=== PATIENT | male | born 1995 | race Caucasian/White ===

== ENCOUNTER 2022-03-25 19:22 | Observation (INO) | payer OTHER ==
[2022-03-25 20:46] LABS: Basophils % (A) 0 %; Eosinophils % (A) 0 %; HCT 44.8 % (39.0-53.0); HGB 15.1 gm/dL (13.0-17.5); Lymphocytes # (A) 1.4 k/uL (1.0-4.8); Lymphocytes % (A) 11 %; MCH 29.7 pg (25.0-35.0); MCHC 33.7 g/dL (31.0-37.0); MCV 88.3 fL (80.0-100.0); Monocytes # (A) 0.5 k/uL (0-1.0); Monocytes % (A) 4 %; Neutrophils # (A) 10.3 k/uL (1.3-7.7); Neutrophils % (A) 84 %; Platelet Count 287 k/uL (150-450); RBC 5.08 m/uL (4.30-5.90); RDW 12.5 % (11.5-15.5); WBC 12.4 k/uL (3.8-10.6)
[2022-03-25 20:53] LABS: ALT 26 U/L (4-49); AST 28 U/L (17-59); African American GFR (CKD) >90 (>60 ml/min/1.73 sqM); Albumin 4.8 g/dL (3.5-5.0); Alkaline Phosphatase 66 U/L (38-126); Anion Gap 10 mmol/L; Blood Urea Nitrogen 13 mg/dL (9-20); Calcium 9.9 mg/dL (8.4-10.2); Carbon Dioxide 28 mmol/L (22-30); Chloride 102 mmol/L (98-107); Glucose 125 mg/dL (74-99); Non-African American GFR(CKD) >90 (>60 ml/min/1.73 sqM); Potassium 4.3 mmol/L (3.5-5.1); Sodium 140 mmol/L (137-145); Total Bilirubin 0.8 mg/dL (0.2-1.3); Total Protein 8.2 g/dL (6.3-8.2)
--- NOTE | 2022-03-25 21:01 | CT ---
EXAMINATION TYPE: CT abdomen pelvis w con CT DLP: 1389.8 mGycm, Automated exposure control for dose reduction was used. DATE OF EXAM: 03/25/2022 8:42 PM COMPARISON: None. CLINICAL INDICATION:Male, 27 years old with history of abdominal pain; RLQ pain TECHNIQUE: Standard CT of the abdomen and pelvis following the administration of 100 cc of Isovue 3 00 IV contrast material. Coronal and sagittal reformats were performed. FINDINGS: LOWER CHEST: Unremarkable ABDOMEN LIVER: Unremarkable GALLBLADDER AND BILE DUCTS: Unremarkable. PANCREAS: 2 mm hypoattenuating focus within the pancreatic body which is too small to characterize. N o pancreatic ductal dilatation. SPLEEN: Unremarkable. ADRENAL GLANDS: Unremarkable. KIDNEYS AND URETERS: No evidence of hydronephrosis or renal calculus. No concerning lesions. PELVIS BLADDER: Incompletely distended but grossly unremarkable. REPRODUCTIVE: Unremarkable. ABDOMEN & PELVIS STOMACH AND BOWEL: Stomach and duodenum are unremarkable. Dilated appendix with a few appendicoliths identified with largest in the proximal portion measuring up to 0.5 cm. The appendix measures up to 1 .5 cm with surrounding subtle fat stranding. No evidence for perforation at this time. No surrounding abscess. No evidence of bowel obstruction. PERITONEUM: No evidence of pneumoperitoneum or free fluid. VASCULATURE: No evidence of aortic aneurysm. MUSCULOSKELETAL: No acute osseous abnormalities. Fixation hardware involving the right pelvic bones. LYMPH NODES: Several nonenlarged but prominent mesenteric lymph nodes identified, likely reactive. SOFT TISSUE/ABDOMINAL WALL: Patulous bilaterally inguinal rings. IMPRESSION: Uncomplicated acute appendicitis. Findings called to and communicated with Dr. Erasto Warner at 8:57 PM on 03/25/2022.
--- NOTE | 2022-03-25 21:14 | ED ---
General Adult HPI - General Chief complaint: Abdominal Pain Stated complaint: Abd pain,Nausea Time Seen by Provider: 03/25/22 21:04 Source: patient Mode of arrival: ambulatory Limitations: no limitations - History of Present Illness Initial comments: Patient presents to the ED with his whit for evaluation. Patient states that he awoke this morning with periumbilical abdominal pain, which moved to his right lower quadrant abdomen in the afternoon. Patient states that he has also felt nauseated and vomited once today. Patient also states that he has had a decreased appetite today. Patient states that his right lower abdominal pain is worse with ambulation. Patient denies trauma or injury, fever or chills, headache, focal neuro deficit, chest pain or pressure, dyspnea, cough or cold symptoms, upper abdominal pain, back or flank pain, testicular pain, diarrhea or constipation, bloody or melanotic stool, hematemesis, dysuria/hematuria/urinary frequency/urinary symptoms, or any other symptoms or complaints. - Related Data Allergies Allergy/AdvReac Type Severity Reaction Status Date / Time No Known Allergies Allergy Verified 03/25/22 20:03 Review of Systems ROS Statement: Those systems with pertinent positive or pertinent negative responses have been documented in the HPI. ROS Other: All systems not noted in ROS Statement are negative. General Exam Limitations: no limitations General appearance: alert, in no apparent distress Head exam: Present: atraumatic, normocephalic Eye exam: Present: normal appearance, EOMI ENT exam: Present: mucous membranes moist Neck exam: Present: other (Trachea is in midline) Respiratory exam: Present: normal lung sounds bilaterally. Absent: respiratory distress, wheezes, rales, rhonchi, stridor Cardiovascular Exam: Present: regular rate, normal rhythm, normal heart sounds, other (Normal radial pulses bilaterally) GI/Abdominal exam: Present: soft, rebound, normal bowel sounds, other (McBurney's point tenderness; negative Rovsing sign). Absent: distended, guarding Extremities exam: Absent: pedal edema Back exam: Absent: CVA tenderness (R), CVA tenderness (L) Neurological exam: Present: alert, oriented X3. Absent: motor sensory deficit Psychiatric exam: Present: normal affect, normal mood Skin exam: Present: warm, dry, intact, normal color Course Vital Signs 03/25/22 19:58 Temperature 98.5 F Pulse Rate 73 Respiratory 18 Rate Blood Pressure 144/89 O2 Sat by Pulse 97 Oximetry - Reevaluation(s) Reevaluation #1: 03/25/22 21:19 Case, H&P, test results and ED management were discussed with Dr. Beavers (general surgery). He accepts hospital admission. He agrees with IV Zosyn antibiotic treatment. He states that he will see the patient in the morning. He asked to keep the patient NPO. He has no further recommendations at this time. Medical Decision Making - Medical Decision Making Patient's H&P and CT findings are all consistent with acute appendicitis. Patient has been treated with IV fluids, IV pain medications and IV antibiotics in the ED. Dr. Beavers (general surgery) has accepted hospital admission. - Lab Data Result diagrams: 03/25/22 20:10 03/25/22 20:10 Lab Results 03/25/22 03/25/22 Range/Units 20:10 20:10 WBC 12.4 H (3.8-10.6) k/uL RBC 5.08 (4.30-5.90) m/uL Hgb 15.1 (13.0-17.5) gm/dL Hct 44.8 (39.0-53.0) % MCV 88.3 (80.0-100.0) fL MCH 29.7 (25.0-35.0) pg MCHC 33.7 (31.0-37.0) g/dL RDW 12.5 (11.5-15.5) % Plt Count 287 (150-450) k/uL MPV 8.0 Neutrophils % 84 % Lymphocytes % 11 % Monocytes % 4 % Eosinophils % 0 % Basophils % 0 % Neutrophils # 10.3 H (1.3-7.7) k/uL Lymphocytes # 1.4 (1.0-4.8) k/uL Monocytes # 0.5 (0-1.0) k/uL Eosinophils # 0.0 (0-0.7) k/uL Basophils # 0.0 (0-0.2) k/uL Sodium 140 (137-145) mmol/L Potassium 4.3 (3.5-5.1) mmol/L Chloride 102 (98-107) mmol/L Carbon Dioxide 28 (22-30) mmol/L Anion Gap 10 mmol/L BUN 13 (9-20) mg/dL Creatinine 0.98 (0.66-1.25) mg/dL Est GFR (CKD-EPI)AfAm >90 (>60 ml/min/1.73 sqM) Est GFR (CKD-EPI)NonAf >90 (>60 ml/min/1.73 sqM) Glucose 125 H (74-99) mg/dL Calcium 9.9 (8.4-10.2) mg/dL Total Bilirubin 0.8 (0.2-1.3) mg/dL AST 28 (17-59) U/L ALT 26 (4-49) U/L Alkaline Phosphatase 66 (38-126) U/L Total Protein 8.2 (6.3-8.2) g/dL Albumin 4.8 (3.5-5.0) g/dL - Radiology Data CT abdomen/pelvis with IV contrast: Uncomplicated acute appendicitis. Disposition Clinical Impression: Acute appendicitis Disposition: ADMITTED IP TO THIS [facility] Condition: Stable Is patient prescribed a controlled substance at d/c from ED?: No Referrals: Nonstaff,Physician [Primary Care Provider] - 1-2 days Time of Disposition: 21:27
[2022-03-25] MEDS ORDERED: PIPERACILLIN-TAZOBACTAM 3.375 GM in SODIUM CHLORIDE 0.9% 100 ML IVPB STA (21:19)
[2022-03-25] MEDS ORDERED: SODIUM CHLORIDE 0.9% 1,000 ML IV ONE (21:20)
[2022-03-25] MEDS ORDERED: ONDANSETRON 4 MG/2 ML VIAL IVP STA (21:20)
[2022-03-25] MEDS ORDERED: HYDROmorphone 1 MG/ML 1 ML SYRINGE IVP STA (21:20)
[2022-03-25] MEDS ORDERED: NALOXONE 0.4 MG/ML 1 ML VIAL IV PRN (21:27)
[2022-03-25] MEDS ORDERED: ONDANSETRON 4 MG/2 ML VIAL IVP PRN (21:27)
[2022-03-25] MEDS: SODIUM CHLORIDE 0.9% 1,000 ML IV SCH (21:47)
[2022-03-25 23:29] LABS: Appearance,Urine Clear (Clear); Bilirubin,Urine Negative (Negative); Blood,Urine Negative (Negative); Color,Urine Light Yellow; Glucose,Urine (UA) Negative (Negative); Ketones,Urine Negative (Negative); Leukocyte Esterase,Urine Negative (Negative); Nitrite,Urine Negative (Negative); PH, Urine 7.5 (5.0-8.0); Protein,Urine Trace (Negative); Urobilinogen,Urine <2.0 mg/dL (<2.0)
[2022-03-25 23:54] LABS: Specific Gravity,Urine >1.050 (1.001-1.035)
[2022-03-26] MEDS: HYDROmorphone 0.5 MG/0.5 ML SYRINGE IVP PRN ×2 (00:31→15:01)
[2022-03-26] MEDS ORDERED: KETOROLAC 15 MG/ML 1 ML VIAL IVP STA (02:02)
[2022-03-26] MEDS ORDERED: SCOPOLAMINE 1 MG/72 HR PATCH TRANSDERM STA (02:02)
[2022-03-26] MEDS: HYDROmorphone 1 MG/ML 1 ML SYRINGE IVP PRN ×5 (02:09→19:08)
[2022-03-26] MEDS: PIPERACILLIN-TAZOBACTAM 3.375 GM in SODIUM CHLORIDE 0.9% 100 ML IVPB SCH ×3 (05:23→21:01)
[2022-03-26 06:53] LABS: Basophils % (A) 0 %; Eosinophils % (A) 0 %; Lymphocytes # (A) 1.2 k/uL (1.0-4.8); Lymphocytes % (A) 9 %; MCHC 32.5 g/dL (31.0-37.0); MCV 89.2 fL (80.0-100.0); Mean Platelet Volume 7.9; Monocytes # (A) 0.6 k/uL (0-1.0); Monocytes % (A) 4 %; Neutrophils # (A) 11.5 k/uL (1.3-7.7); Neutrophils % (A) 86 %; Platelet Count 276 k/uL (150-450); RBC 4.82 m/uL (4.30-5.90); RDW 12.5 % (11.5-15.5); WBC 13.4 k/uL (3.8-10.6)
[2022-03-26 07:04] LABS: ALT 22 U/L (4-49); AST 23 U/L (17-59); African American GFR (CKD) >90 (>60 ml/min/1.73 sqM); Albumin 4.2 g/dL (3.5-5.0); Alkaline Phosphatase 65 U/L (38-126); Anion Gap 7 mmol/L; Blood Urea Nitrogen 11 mg/dL (9-20); Calcium 8.8 mg/dL (8.4-10.2); Carbon Dioxide 27 mmol/L (22-30); Chloride 104 mmol/L (98-107); Glucose 118 mg/dL (74-99); Non-African American GFR(CKD) >90 (>60 ml/min/1.73 sqM); Potassium 4.6 mmol/L (3.5-5.1); Sodium 138 mmol/L (137-145); Total Bilirubin 0.7 mg/dL (0.2-1.3); Total Protein 7.3 g/dL (6.3-8.2)
--- NOTE | 2022-03-26 10:05 | P.GSHP ---
History of Present Illness H&P Date: 03/26/22 Chief Complaint: Acute abdominal pain Patient is a 27-year-old gentleman who presents to [facility] emergency department the evening of 03/25/2022 with chief complaint of 24 hours of progressive abdominal pain that started more diffusely and came to rest in the right lower quadrant accompanied by progressive nausea and multiple bouts of nonbloody emesis. He had similar symptoms at around age 17, computed tomography scan abdomen and pelvis reportedly showed findings consistent with appendicitis and he was treated with outpatient antibiotics and has done well until now. He has no known personal history of inflammatory bowel disease, is never undergone any manner of endoscopy. No medical problems of significance aside from occasional asthma, is not maintained on any manner of oral anticoagulants. Laboratory studies revealed mild leukocytosis at 12.4, normal platelet count, no evidence of iron deficiency anemia. Metabolic panel was normal and all counts with the exception of a mildly elevated glucose. Similarly normal. Computed tomography scan of urine pelvis was obtained, images and report reviewed revealing findings consistent with uncomplicated acute appendicitis with fecalith. No evidence of rupture or abscess seen. Patient was started on IV Zosyn and admitted to the surgical service for further care. He is remained hemodynamically stable and afebrile overnight with the exception of a mild tachycardia. - Review of Systems All systems: negative - Constitutional Constitutional: Reports as per HPI - EENT Ears, nose, mouth and throat: Reports as per HPI Past Medical History Past Medical History: No Reported History, Asthma History of Any Multi-Drug Resistant Organisms: None Reported Past Surgical History: Orthopedic Surgery Additional Past Surgical History / Comment(s): right hip right hand Smoking Status: Never smoker Medications and Allergies Home Medications Medication Instructions Recorded Confirmed Type Albuterol Sulfate [Albuterol 2 puff INHALATION RT-QID PRN 03/25/22 03/25/22 History Sulfate Hfa] Ipratropium-Albuterol Nebulize 3 ml INHALATION RT-QID PRN 03/25/22 03/25/22 History [Duoneb 0.5 mg-3 mg/3 ml Soln] Allergies Allergy/AdvReac Type Severity Reaction Status Date / Time No Known Allergies Allergy Verified 03/25/22 22:05 Surgical - Exam Osteopathic Statement: *. No significant issues noted on an osteopathic s tructural exam other than those noted in the History and Physical/Consult. Vital Signs Temp Pulse Resp BP Pulse Ox 98.5 F 73 18 144/89 97 03/25/22 19:58 03/25/22 19:58 03/25/22 19:58 03/25/22 19:58 03/25/22 19:58 There is localized rebound in the right lower quadrant abdomen without guarding, positive Rovsing sign, positive psoas sign on the right consistent with localized peritonitis. - General well developed, well nourished, no distress - Eyes PERRL, normal ocular movement - ENT normal pinna, normal nares, normal mucosa, no hearing loss - Neck trachea midline - Respiratory normal expansion, normal respiratory effort, clear to auscultation - Cardiovascular Rhythm: regular - Abdomen Abdomen: soft - Neurologic normal coordination, normal sensation - Psychiatric oriented to time, oriented to person, oriented to place, speech is normal Results - Labs 03/26/22 06:30 03/26/22 06:30 Abnormal Lab Results - Last 24 Hours (Table) 03/25/22 03/25/22 03/25/22 Range/Units 20:10 20:10 22:52 WBC 12.4 H (3.8-10.6) k/uL Neutrophils # 10.3 H (1.3-7.7) k/uL Glucose 125 H (74-99) mg/dL Ur Specific Moran >1.050 H (1.001-1.035) Urine Protein Trace H (Negative) 03/26/22 03/26/22 Range/Units 06:30 06:30 WBC 13.4 H (3.8-10.6) k/uL Neutrophils # 11.5 H (1.3-7.7) k/uL Glucose 118 H (74-99) mg/dL Ur Specific Moran (1.001-1.035) Urine Protein (Negative) Diabetes panel 03/25/22 03/26/22 Range/Units 20:10 06:30 Sodium 140 138 (137-145) mmol/L Potassium 4.3 4.6 (3.5-5.1) mmol/L Chloride 102 104 (98-107) mmol/L Carbon Dioxide 28 27 (22-30) mmol/L BUN 13 11 (9-20) mg/dL Creatinine 0.98 0.94 (0.66-1.25) mg/dL Glucose 125 H 118 H (74-99) mg/dL Calcium 9.9 8.8 (8.4-10.2) mg/dL AST 28 23 (17-59) U/L ALT 26 22 (4-49) U/L Alkaline Phosphatase 66 65 (38-126) U/L Total Protein 8.2 7.3 (6.3-8.2) g/dL Albumin 4.8 4.2 (3.5-5.0) g/dL Calcium panel 03/25/22 03/26/22 Range/Units 20:10 06:30 Calcium 9.9 8.8 (8.4-10.2) mg/dL Albumin 4.8 4.2 (3.5-5.0) g/dL Pituitary panel 03/25/22 03/26/22 Range/Units 20:10 06:30 Sodium 140 138 (137-145) mmol/L Potassium 4.3 4.6 (3.5-5.1) mmol/L Chloride 102 104 (98-107) mmol/L Carbon Dioxide 28 27 (22-30) mmol/L BUN 13 11 (9-20) mg/dL Creatinine 0.98 0.94 (0.66-1.25) mg/dL Glucose 125 H 118 H (74-99) mg/dL Calcium 9.9 8.8 (8.4-10.2) mg/dL Adrenal panel 03/25/22 03/26/22 Range/Units 20:10 06:30 Sodium 140 138 (137-145) mmol/L Potassium 4.3 4.6 (3.5-5.1) mmol/L Chloride 102 104 (98-107) mmol/L Carbon Dioxide 28 27 (22-30) mmol/L BUN 13 11 (9-20) mg/dL Creatinine 0.98 0.94 (0.66-1.25) mg/dL Glucose 125 H 118 H (74-99) mg/dL Calcium 9.9 8.8 (8.4-10.2) mg/dL Total Bilirubin 0.8 0.7 (0.2-1.3) mg/dL AST 28 23 (17-59) U/L ALT 26 22 (4-49) U/L Alkaline Phosphatase 66 65 (38-126) U/L Total Protein 8.2 7.3 (6.3-8.2) g/dL Albumin 4.8 4.2 (3.5-5.0) g/dL - Imaging CT scan - abdomen: report reviewed, image reviewed Assessment and Plan Assessment: 27-year-old gentleman with clinical history, physical exam, laboratory studies and imaging consistent with uncomplicated acute appendicitis with fecalith. Hemodynamically stable, no compelling signs for sepsis. Mildly tachycardic in the setting of nausea and pain. History of similar presentation at age 17 treated with outpatient antibiotics. Plan: Options for treatment were discussed with the patient, he wishes to move forward laparoscopic, possible open appendectomy and gave informed consent for the same after discussion of risks, benefit alternatives treatment. He's been scheduled for surgery today, tentatively at around noon. If he does well postoperatively and there is no evidence of rupture or abscess he may be ready for discharge home this evening at the earliest. Continue with scheduled antibiotics in the interim. He was advised to anticipate 2 weeks off from work and a light duty restriction no lifting over 10 pounds for at least 4 weeks, preferably 6. Time with Patient: Greater than 30
[2022-03-26] MEDS: ENOXAPARIN 40 MG/0.4 ML SYRINGE SQ SCH (11:14)
[2022-03-26] MEDS ORDERED: ONDANSETRON 4 MG/2 ML VIAL ONE (12:24)
[2022-03-26] MEDS ORDERED: PROPOFOL 10 MG/ML 20 ML VIAL IV ONE (12:24)
[2022-03-26] MEDS ORDERED: LIDOCAINE 2% INJ 20 MG/ML (2 ML VIAL) ONE (12:24)
[2022-03-26] MEDS ORDERED: MIDAZOLAM 2 MG/2 ML VIAL ONE (12:24)
[2022-03-26] MEDS ORDERED: NEOSTIGMINE 1 MG/ML 10 ML VIAL ONE (12:24)
[2022-03-26] MEDS ORDERED: KETOROLAC 15 MG/ML 1 ML VIAL ONE (12:24)
[2022-03-26] MEDS ORDERED: SUCCINYLCHOLINE CHLORIDE 200 MG/10 ML VIAL IV ONE (12:24)
[2022-03-26] MEDS ORDERED: fentaNYL (PF) 50 MCG/ML 2 ML AMP ONE (12:24)
[2022-03-26] MEDS ORDERED: DEXAMETHASONE SOD PHOSPHATE 10 MG/ML 1 ML VIAL ONE (12:24)
[2022-03-26] MEDS ORDERED: GLYCOPYRROLATE 0.2 MG/ML 2 ML VIAL ONE (12:24)
[2022-03-26] MEDS ORDERED: ROCURONIUM 10 MG/ML (5 ML VIAL) IV ONE (12:24)
[2022-03-26] MEDS ORDERED: SODIUM CHLORIDE 0.9% 1,000 ML IV ONE (12:26)
[2022-03-26] MEDS ORDERED: BUPIVACAIN-EPI 0.25%-1:200,000 30 ML VIAL SQ ONE ×2 (12:53)
[2022-03-26] MEDS ORDERED: LIDOCAINE 1% INJ 10MG/ML (10 ML MDV) SQ ONE ×2 (12:53)
[2022-03-26] MEDS ORDERED: LACTATED RINGERS 1,000 ML IV ONE (13:04)
[2022-03-26] MEDS ORDERED: BACITRACIN ZINC 500 UNIT/GM OINT 28.4 GM TUBE TOPICAL ONE (13:15)
[2022-03-26] MEDS ORDERED: ACETAMINOPHEN TAB 325 MG TAB PO PRN (13:29)
--- NOTE | 2022-03-26 13:29 | P.OP ---
Date of Procedure: 03/26/22 Preoperative Diagnosis: Acute appendicitis, localized peritonitis Postoperative Diagnosis: Acute suppurative appendicitis without rupture or abscess, localized peritonitis. Procedure(s) Performed: Laparoscopic appendectomy Anesthesia: CLARISA, local Surgeon: Silviano Beavers Estimated Blood Loss (ml): 5 Pathology: other (Appendix submitted to pathology) Condition: stable Disposition: floor Indications for Procedure: Patient is a 27-year-old gentleman who presented to [facility] emergency department the evening of March 22 with chief complaint of less than 24 hours of progressive abdominal pain that came to rest in the right lower quadrant is accompanied by nausea and multiple bouts of emesis. Computed tomography scan of the abdomen and pelvis showed findings consistent with acute appendicitis with fecalith, no evidence of rupture or abscess. He had a similar presentation at around age 17, was diagnosed with appendicitis and treated nonoperatively. He has no known personal history of inflammatory bowel disease, is not maintained on any manner of oral anticoagulants. He was started on broad-spectrum antibiotics with Zosyn and chose to move forward laparoscopic appendectomy after discussion of risks, benefit alternatives to treatment. He gave informed consent for the aforementioned procedure. Operative Findings: As above Description of Procedure: Patient was taken to the operating room suite and placed in supine position. Following induction of general endotracheal anesthesia he was prepped and draped in sterile fashion. A local anesthesia was administered to the skin over pa lmers point in the left upper quadrant and incision made with 11 blade. Abdomen was entered under laparoscopic guidance with 5 mm trocar, insufflated and surveyed. No apparent injury or bleeding were noted. A second 5 mm port was placed at the umbilical position and a third at the suprapubic position with identical technique. The palmers point port was upsized to 12 mm. Cecum was readily identified in the right lower quadrant as was ileocecal valve and appendiceal base. Appendix was mobile but acutely indurated and inflamed with evidence of acute suppurative appendicitis but no signs of rupture or abscess. Window was created bluntly at the base of the appendix and appendix divided with Endo LUPIS blue load. Mesoappendix and appendiceal artery were taken down with LigaSure. Staple line was intact, no signs of bleeding. Appendix was retrieved with the Endo Catch bag through the palmers point port site. Fascia required some mild dilation to facilitate delivery. The right lower quadrant adjacent to the cecum was irrigated and aspirated and after confirmation of hemostasis the fascia at the left upper quadrant port site was closed with 0 Vicryl tie and Marty-Sergey suture passer. Abdomen was desufflated, all ports withdrawn and skin over each trocar site silk closed with skin stapler. Sterile dressings were placed and the patient transferred to the postanesthesia care unit in stable condition. If he does well this afternoon he may be ready for discharge home by early this evening. No complications apparent at present.
[2022-03-26] MEDS ORDERED: IPRATROPIUM-ALBUTEROL 3 ML NEB INHALATION PRN (13:30)
[2022-03-26] MEDS ORDERED: ALBUTEROL NEBULIZED 2.5 MG/3 ML INHALATION PRN (13:30)
[2022-03-26] MEDS: SODIUM CHLORIDE 0.9% 1,000 ML IV SCH (14:58)
[2022-03-27] MEDS: SODIUM CHLORIDE 0.9% 1,000 ML IV SCH (02:10)
[2022-03-27] MEDS: PIPERACILLIN-TAZOBACTAM 3.375 GM in SODIUM CHLORIDE 0.9% 100 ML IVPB SCH (05:30)
[2022-03-27] MEDS: ENOXAPARIN 40 MG/0.4 ML SYRINGE SQ SCH (07:25)
[2022-03-27] MEDS: HYDROmorphone 1 MG/ML 1 ML SYRINGE IVP PRN (07:25)
[2022-03-27 07:57] VITALS: BP 120/70; RESP 16; TEMP 98.2
[2022-03-27 08:54] VITALS: PULSE 104
[2022-03-27 09:19] LABS: Basophils # (A) 0.02 X 10*3/uL (0.00-0.10); Basophils % (A) 0.2 %; Eosinophils # (A) 0.01 X 10*3/uL (0.04-0.35); Eosinophils % (A) 0.1 %; HCT 41.2 % (39.6-50.0); HGB 12.9 g/dL (13.0-17.0); Immature Grans, Automated 0.3 %; Lymphocytes # (A) 1.58 X 10*3/uL (0.90-5.00); Lymphocytes % (A) 13.5 %; MCH 28.2 pg (27.0-32.0); MCHC 31.3 g/dL (32.0-37.0); MCV 90.2 fL (80.0-97.0); Mean Platelet Volume 11.2 fL (9.5-12.2); Monocytes # (A) 0.71 X 10*3/uL (0.20-1.00); Monocytes % (A) 6.1 %; NRBC Per 100 WBC 0 /100 WBCS (0.0-0.0); Neutrophils # (A) 9.32 X 10*3/uL (1.80-7.70); Neutrophils % (A) 79.8 %; Platelet Count 264 X 10*3/uL (140-440); RBC 4.57 X 10*6/uL (4.40-5.60); RDW 12.8 % (11.5-14.5); WBC 11.68 X 10*3/uL (4.50-10.00)
[2022-03-27 09:27] LABS: Albumin 4.2 g/dL (3.8-4.9); Albumin/Globulin Ratio 1.62 (1.60-3.17); Anion Gap 11.5 mmol/L (10.00-18.00); BUN/Creat Ratio 10.6 Ratio (12.00-20.00); Blood Urea Nitrogen 10.6 mg/dL (9.0-27.0); Calcium 9.1 mg/dL (8.7-10.3); Carbon Dioxide 25.5 mmol/L (20.0-27.5); Globulin 2.6 g/dL (1.6-3.3); Non-African American GFR(CKD) 102.7 (60.0-200.0); Potassium 4.6 mmol/L (3.5-5.5); Total Bilirubin 0.7 mg/dL (0.30-1.20); Total Protein 6.8 g/dL (6.2-8.2)
== END 2022-03-27 14:22 | disposition home or self-care (01) ==
LOC: EC 19:22 → 4SSUR 21:27
PROVIDERS: ADMIT Surgery; ATTEND Surgery
DX: K35.30 Acute appendicitis with localized peritonitis, without perforation or gangrene (principal); K38.1 Appendicular concretions; J45.909 Unspecified asthma, uncomplicated; R73.9 Hyperglycemia, unspecified
CPT/HCPCS: 96376; 96372; 96375 ×2; 96374; 99285; 36415; 94640; 94760; 88304; 80053 ×3; 85025 ×3; 81003; 74177; 44970; G0378 ×3; J2543 ×3; J2250; J0330; J1100; J2710; J2405 ×2; J1650 ×2; J3010; J1170 ×4; J1885; J2001 ×2; J2704; Q9967

== ENCOUNTER 2022-09-30 01:50 | Emergency (ER) | payer OTHER ==
[2022-09-30] MEDS ORDERED: dexAMETHasone 2 MG TAB PO STA (02:18)
[2022-09-30] MEDS ORDERED: IPRATROPIUM-ALBUTEROL 3 ML NEB INHALATION STA ×2 (02:18→05:36)
--- NOTE | 2022-09-30 02:19 | ED ---
SOB HPI - General Chief Complaint: Shortness of Breath Stated Complaint: LEILANI Time Seen by Provider: 09/30/22 02:18 Source: patient, RN notes reviewed, old records reviewed Mode of arrival: ambulatory Limitations: no limitations - History of Present Illness Initial Comments: This is a 27-year-old male presented with shortness of breath cough congestion i ncreasing wheezing with history of asthma. Patient states he has no prior admissions for asthma, is currently a nonsmoker with no travel history or sick contacts no chest pain no swelling of his legs patient has had symptoms for 3-4 days and they have been persistent. MD Complaint: shortness of breath, cough, "asthma attack" -: days(s) Radiation: back Severity: moderate Severity scale (1-10): 7 Quality: aching Consistency: intermittent Improves With: nothing Worsens With: nothing Context: recent URI, recent illness Associated Symptoms: chest pain, cough, sputum production Treatments Prior to Arrival: none - Related Data Home Medications Medication Instructions Recorded Confirmed Albuterol Sulfate [Albuterol 2 puff INHALATION RT-QID PRN 03/25/22 03/25/22 Sulfate Hfa] Ipratropium-Albuterol Nebulize 3 ml INHALATION RT-QID PRN 03/25/22 03/25/22 [Duoneb 0.5 mg-3 mg/3 ml Soln] Previous Rx's Medication Instructions Recorded HYDROcodone/APAP 5-325MG [Butternut 1 tab PO Q6HR PRN 3 Days #14 tab 03/27/22 5-325] Albuterol Nebulized [Ventolin 2.5 mg INHALATION Q4H PRN #25 each 09/30/22 Nebulized] Azithromycin [Zithromax] 500 mg PO DAILY 5 Days #5 tab 09/30/22 predniSONE 50 mg PO DAILY #5 tab 09/30/22 Allergies Allergy/AdvReac Type Severity Reaction Status Date / Time No Known Allergies Allergy Verified 03/25/22 22:05 Review of Systems ROS Statement: Those systems with pertinent positive or pertinent negative responses have been documented in the HPI. ROS Other: All systems not noted in ROS Statement are negative. Past Medical History Past Medical History: No Reported History, Asthma History of Any Multi-Drug Resistant Organisms: None Reported Past Surgical History: Appendectomy, Orthopedic Surgery Additional Past Surgical History / Comment(s): right hip right hand Smoking Status: Never smoker Past Alcohol Use History: Occasional Past Drug Use History: None Reported General Exam Limitations: no limitations General appearance: alert, in no apparent distress Head exam: Present: atraumatic, normocephalic, normal inspection Eye exam: Present: normal appearance, PERRL, EOMI. Absent: scleral icterus, conjunctival injection, periorbital swelling ENT exam: Present: normal exam, mucous membranes moist Neck exam: Present: normal inspection. Absent: tenderness, meningismus, lymphadenopathy Respiratory exam: Present: normal lung sounds bilaterally. Absent: respiratory distress, wheezes, rales, rhonchi, stridor Cardiovascular Exam: Present: regular rate, normal rhythm, normal heart sounds. Absent: systolic murmur, diastolic murmur, rubs, gallop, clicks GI/Abdominal exam: Present: soft, normal bowel sounds. Absent: distended, tenderness, guarding, rebound, rigid Extremities exam: Present: normal inspection, full ROM, normal capillary refill. Absent: tenderness, pedal edema, joint swelling, calf tenderness Back exam: Present: normal inspection Neurological exam: Present: alert, oriented X3, CN II-XII intact Psychiatric exam: Present: normal affect, normal mood Skin exam: Present: warm, dry, intact, normal color. Absent: rash Course Vital Signs 09/30/22 09/30/22 09/30/22 02:07 02:29 02:46 Temperature 97.4 F L Pulse Rate 102 H 107 H 117 H Respiratory 12 Rate Blood Pressure 144/86 O2 Sat by Pulse 94 L Oximetry 09/30/22 09/30/22 09/30/22 05:00 05:46 05:58 Temperature Pulse Rate 94 101 H 102 H Respiratory 16 Rate Blood Pressure 126/84 O2 Sat by Pulse 96 Oximetry - Reevaluation(s) Reevaluation #1: 09/30/22 04:18 Medical record reviewed Reevaluation #2: 09/30/22 04:18 Patient informed of results and questions answered Reevaluation #3: 09/30/22 04:19 Patient symptoms are improved Reevaluation #4: 09/30/22 04:19 MDM differential shortness of breath Reevaluation #5: 09/30/22 04:19 Was pt. sent in by a medical professional or institution? @ -no Did you speak to anyone other than the patient for history? @ -family Did you review nursing and triage notes? @ -agree Were old charts reviewed? @ -no Differential Diagnosis? @ -prior EKG interpreted by me (3pts min.)? @ -[none] X-rays interpreted by me (1pt min.)? @ -[none] CT interpreted by me (1pt min.)? @ -[none] U/S interpreted by me (1pt. min.)? @ -[none] What testing was considered but not performed? (CT, X-rays, U/S, labs)? Why? @ [CT, X-rays, U/S, labs? Why?] What meds were considered but not given? Why? @ -[none] Did you discuss the management of the patient with other professionals? @ --no Did you reconcile home meds? @ -[none] Was smoking cessation discussed for >3mins.? @ -[none] Was critical care preformed (if so, how long)? @ -[none] Were there social determinants of health that impacted care today? How? (Homelessness, low income, unemployed, alcoholism, drug addiction, transportation, low edu. Level, literacy, decrease access to med. care, alf, rehab)? @ -no Was there de-escalation of care discussed even if they declined? (Discuss DNR or withdrawal of care, Hospice)? @ -no What co-morbidities impacted this encounter? (DM, HTN, Smoking, COPD, CAD, Cancer, CVA, Hep., AIDS, mental health diagnosis, sleep apnea, morbid obesity)? @ -no Was patient admitted / discharged? @ -admit Undiagnosed new problem with uncertain prognosis? @ -[none] Drug Therapy requiring intensive monitoring for toxicity (Heparin, Nitro, Insulin, Cardizem)? @ -[none] Were any procedures done? @ -[none] Diagnosis/symptom? @ -[default] Acute, or Chronic, or Acute on Chronic? @ -[default] Uncomplicated (without systemic symptoms) or Complicated (systemic symptoms)? @ -[default] Side effects of treatment? @ -[none] Exacerbation, Progression, or Severe Exacerbation] @ -[no] Poses a threat to life or bodily function? @ -[no] Medical Decision Making - Medical Decision Making 27 male to the emergency department for evaluation of significant cough congestion shortness of breath difficulty breathing significant bronchitis with pneumonia. Patient placed on antibiotics breathing treatments and short course of steroids and can be discharged - Lab Data Result diagrams: 09/30/22 03:40 09/30/22 03:40 Lab Results 09/30/22 09/30/22 09/30/22 Range/Units 02:20 03:40 03:40 WBC 7.0 (3.8-10.6) k/uL RBC 4.84 (4.30-5.90) m/uL Hgb 14.0 (13.0-17.5) gm/dL Hct 41.1 (39.0-53.0) % MCV 85.0 (80.0-100.0) fL MCH 28.9 (25.0-35.0) pg MCHC 34.0 (31.0-37.0) g/dL RDW 13.2 (11.5-15.5) % Plt Count 223 (150-450) k/uL MPV 8.1 Neutrophils % 67 % Lymphocytes % 19 % Monocytes % 5 % Eosinophils % 5 % Basophils % 1 % Neutrophils # 4.7 (1.3-7.7) k/uL Lymphocytes # 1.4 (1.0-4.8) k/uL Monocytes # 0.4 (0-1.0) k/uL Eosinophils # 0.4 (0-0.7) k/uL Basophils # 0.0 (0-0.2) k/uL PT 9.8 (9.0-12.0) sec INR 0.9 (<1.2) APTT 26.2 (22.0-30.0) sec D-Dimer 0.18 (<0.60) mg/L FEU Sodium (137-145) mmol/L Potassium (3.5-5.1) mmol/L Chloride (98-107) mmol/L Carbon Dioxide (22-30) mmol/L Anion Gap mmol/L BUN (9-20) mg/dL Creatinine (0.66-1.25) mg/dL Est GFR (CKD-EPI)AfAm (>60 ml/min/1.73 sqM) Est GFR (CKD-EPI)NonAf (>60 ml/min/1.73 sqM) Glucose (74-99) mg/dL Calcium (8.4-10.2) mg/dL Phosphorus (2.5-4.5) mg/dL Magnesium (1.6-2.3) mg/dL Total Bilirubin (0.2-1.3) mg/dL AST (17-59) U/L ALT (4-49) U/L Alkaline Phosphatase (38-126) U/L Troponin I (0.000-0.034) ng/mL NT-Pro-B Natriuret Pep pg/mL Total Protein (6.3-8.2) g/dL Albumin (3.5-5.0) g/dL Influenza Type A (PCR) Not Detected (Not Detectd) Influenza Type B (PCR) Not Detected (Not Detectd) RSV (PCR) Not Detected (Not Detectd) SARS-CoV-2 (PCR) Not Detected (Not Detectd) 09/30/22 09/30/22 09/30/22 Range/Units 03:40 03:40 03:40 WBC (3.8-10.6) k/uL RBC (4.30-5.90) m/uL Hgb (13.0-17.5) gm/dL Hct (39.0-53.0) % MCV (80.0-100.0) fL MCH (25.0-35.0) pg MCHC (31.0-37.0) g/dL RDW (11.5-15.5) % Plt Count (150-450) k/uL MPV Neutrophils % % Lymphocytes % % Monocytes % % Eosinophils % % Basophils % % Neutrophils # (1.3-7.7) k/uL Lymphocytes # (1.0-4.8) k/uL Monocytes # (0-1.0) k/uL Eosinophils # (0-0.7) k/uL Basophils # (0-0.2) k/uL PT (9.0-12.0) sec INR (<1.2) APTT (22.0-30.0) sec D-Dimer (<0.60) mg/L FEU Sodium 141 (137-145) mmol/L Potassium 4.5 (3.5-5.1) mmol/L Chloride 107 (98-107) mmol/L Carbon Dioxide 26 (22-30) mmol/L Anion Gap 8 mmol/L BUN 13 (9-20) mg/dL Creatinine 0.79 (0.66-1.25) mg/dL Est GFR (CKD-EPI)AfAm >90 (>60 ml/min/1.73 sqM) Est GFR (CKD-EPI)NonAf >90 (>60 ml/min/1.73 sqM) Glucose 115 H (74-99) mg/dL Calcium 9.1 (8.4-10.2) mg/dL Phosphorus 3.0 (2.5-4.5) mg/dL Magnesium 2.0 (1.6-2.3) mg/dL Total Bilirubin 0.7 (0.2-1.3) mg/dL AST 27 (17-59) U/L ALT 32 (4-49) U/L Alkaline Phosphatase 63 (38-126) U/L Troponin I <0.012 (0.000-0.034) ng/mL NT-Pro-B Natriuret Pep 17 pg/mL Total Protein 7.3 (6.3-8.2) g/dL Albumin 4.3 (3.5-5.0) g/dL Influenza Type A (PCR) (Not Detectd) Influenza Type B (PCR) (Not Detectd) RSV (PCR) (Not Detectd) SARS-CoV-2 (PCR) (Not Detectd) - EKG Data -: EKG Interpreted by Me (EKG is sinus 93 [place] 153 QRS 108 QTc 383) - Radiology Data Radiology results: report reviewed (Chest x-rays positive for pneumonia), image reviewed Disposition Clinical Impression: Community acquired pneumonia, Acute bronchitis, Asthma exacerbation Disposition: HOME SELF-CARE Condition: Good Instructions (If sedation given, give patient instructions): Asthma (ED), Acute Bronchitis (ED) Prescriptions: predniSONE 50 mg PO DAILY #5 tab Albuterol Nebulized [Ventolin Nebulized] 2.5 mg INHALATION Q4H PRN #25 each PRN Reason: Shortness Of Breath Azithromycin [Zithromax] 500 mg PO DAILY 5 Days #5 tab Is patient prescribed a controlled substance at d/c from ED?: No Referrals: Juliet Jacobs MD [Primary Care Provider] - 1-2 days Time of Disposition: 06:05
[2022-09-30 02:20] VITALS: TEMP 97.4
--- NOTE | 2022-09-30 02:32 | XR ---
EXAMINATION TYPE: XR chest 1V portable DATE OF EXAM: 09/30/2022 COMPARISON: NONE HISTORY: Short of breath TECHNIQUE: Single view FINDINGS: Heart is normal. Lungs are clear. Diaphragm is normal. Bony thorax is intact. There are rachelle st leads. IMPRESSION: Normal chest.
[2022-09-30] MEDS ORDERED: AZITHROMYCIN 500 MG TAB PO STA (03:15)
[2022-09-30] MEDS ORDERED: SODIUM CHLORIDE 0.9% 1,000 ML IV STA (03:24)
[2022-09-30] MEDS ORDERED: DEXAMETHASONE SOD PHOSPHATE 10 MG/ML 1 ML VIAL IVP STA (03:25)
[2022-09-30 04:14] LABS: Basophils % (A) 1 %; Eosinophils # (A) 0.4 k/uL (0-0.7); Eosinophils % (A) 5 %; HCT 41.1 % (39.0-53.0); Lymphocytes # (A) 1.4 k/uL (1.0-4.8); Lymphocytes % (A) 19 %; MCH 28.9 pg (25.0-35.0); Mean Platelet Volume 8.1; Monocytes # (A) 0.4 k/uL (0-1.0); Monocytes % (A) 5 %; Neutrophils # (A) 4.7 k/uL (1.3-7.7); Neutrophils % (A) 67 %; Platelet Count 223 k/uL (150-450); RBC 4.84 m/uL (4.30-5.90); RDW 13.2 % (11.5-15.5)
[2022-09-30 04:25] LABS: ALT 32 U/L (4-49); AST 27 U/L (17-59); African American GFR (CKD) >90 (>60 ml/min/1.73 sqM); Albumin 4.3 g/dL (3.5-5.0); Alkaline Phosphatase 63 U/L (38-126); Anion Gap 8 mmol/L; Blood Urea Nitrogen 13 mg/dL (9-20); Calcium 9.1 mg/dL (8.4-10.2); Carbon Dioxide 26 mmol/L (22-30); Chloride 107 mmol/L (98-107); Glucose 115 mg/dL (74-99); Non-African American GFR(CKD) >90 (>60 ml/min/1.73 sqM); Potassium 4.5 mmol/L (3.5-5.1); Sodium 141 mmol/L (137-145); Total Bilirubin 0.7 mg/dL (0.2-1.3); Total Protein 7.3 g/dL (6.3-8.2)
[2022-09-30 04:31] LABS: INR 0.9 (<1.2); Partial Thromboplastin Time 26.2 sec (22.0-30.0); Prothrombin Time 9.8 sec (9.0-12.0)
--- NOTE | 2022-09-30 04:42 | CT ---
EXAMINATION TYPE: CT angio chest DATE OF EXAM: 09/30/2022 COMPARISON: None HISTORY: SOB, LEILANI x [address] DLP: 461.4 mGycm Automated exposure control for dose reduction was used. CONTRAST: Performed with IV Contrast, patient injected with 100ml mL of Isovue 370. There are 3-D post processed images. There is no mediastinal adenopathy. Thoracic aorta is intact. No aneurysm or dissection. There are no hilar masses. Heart size is normal. No pericardial effusion. There is no evidence of filling defect in the pulmonary arteries. There is no pleural effusion. No evidence of a pulmonary mass. There is some linear density right mid dle lobe consistent with mild infiltrate and atelectasis. There is mild subsegmental atelectasis righ t lower lobe posteriorly. Upper abdominal soft tissues are intact. The bony thorax is intact. Sternum appears normal. IMPRESSION: No evidence of pulmonary embolism. There is a right lower lobe and right middle lobe mild linear infi ltrate or atelectasis. No suspicious pulmonary mass.
[2022-09-30] MEDS ORDERED: cefTRIAXone IN SWFI 1,000 MG/10 ML SYRINGE IVP STA (05:36)
[2022-09-30 05:46] VITALS: RESP 16
[2022-09-30] MEDS ORDERED: FAMOTIDINE 20 MG/2 ML VIAL IV STA (07:30)
[2022-09-30] MEDS ORDERED: diphenhydrAMINE 50 MG/ML 1 ML VIAL IVP STA (07:30)
[2022-09-30] MEDS ORDERED: ALBUTEROL NEBULIZED 2.5 MG/3 ML INHALATION STA (07:41)
[2022-09-30 08:10] VITALS: BP 125/81; PULSE 108
--- NOTE | 2022-09-30 09:09 | ED ---
Medical Decision Making - Medical Decision Making Patient was discharged by the prior physician, and was being treated for pneumonia with a Rocephin injection as well as azithromycin. Patient shortly after receiving the Rocephin broke out and an ALLERGIC rash. I was notified and presented to the bedside. Patient has a urticarial rash located over his arms, face, back. It is itchy. Denies any worsening shortness of breath. Denies any nausea, vomiting. Denies any difficulty swallowing. No other acute complaints at this time. Patient will be administered Benadryl as well as famotidine. Patient has already received 10 mg of IV dexamethasone. He'll be monitored in additional hour for symptomatic improvement. He was in agreement this plan. On reevaluation, patient's ALLERGIC reaction seems to have almost resolved. He is feeling well and would like to go home. I believe this is reasonable. We discussed his ALLERGIC reaction and that he has a cephalosporin ALLERGY from this point on. He expressed understanding. I will have the ALLERGY to his chart. He'll be discharged home at this time. He was discharged home with a Z- Joe, not Rocephin. I will also provide him with a prescription for famotidine. He has [id number] Benadryl at home as needed. Is also going home on prednisone from the prior physician. I will provide the patient with a prescription for Pepcid, albuterol inhaler, famotidine, Z-Joe, prednisone,. I instructed the patient to follow up with their PCP in the next 1-3 days. I explained that the patient should return to the emergency department if they experience any worsening symptoms. Strict return precautions were discussed with the patient. The patient expressed understanding of these instructions. I answered all questions that the patient had. The patient was discharged home in [good] condition with their prescriptions and follow up information. Diagnosis/symptom? @ -Cephalosporin ALLERGY, urticariarial rash Acute, or Chronic, or Acute on Chronic? @ -Acute Uncomplicated (without systemic symptoms) or Complicated (systemic symptoms)? @ -Uncomplicated Side effects of treatment? @ -[none] Exacerbation, Progression, or Severe Exacerbation] @ -[no] Poses a threat to life or bodily function? @ -Yes, if untreated can result in significant morbidity and mortality. - Lab Data Result diagrams: 09/30/22 03:40 09/30/22 03:40 Lab Results 09/30/22 09/30/22 09/30/22 Range/Units 02:20 03:40 03:40 WBC 7.0 (3.8-10.6) k/uL RBC 4.84 (4.30-5.90) m/uL Hgb 14.0 (13.0-17.5) gm/dL Hct 41.1 (39.0-53.0) % MCV 85.0 (80.0-100.0) fL MCH 28.9 (25.0-35.0) pg MCHC 34.0 (31.0-37.0) g/dL RDW 13.2 (11.5-15.5) % Plt Count 223 (150-450) k/uL MPV 8.1 Neutrophils % 67 % Lymphocytes % 19 % Monocytes % 5 % Eosinophils % 5 % Basophils % 1 % Neutrophils # 4.7 (1.3-7.7) k/uL Lymphocytes # 1.4 (1.0-4.8) k/uL Monocytes # 0.4 (0-1.0) k/uL Eosinophils # 0.4 (0-0.7) k/uL Basophils # 0.0 (0-0.2) k/uL PT 9.8 (9.0-12.0) sec INR 0.9 (<1.2) APTT 26.2 (22.0-30.0) sec D-Dimer 0.18 (<0.60) mg/L FEU Sodium (137-145) mmol/L Potassium (3.5-5.1) mmol/L Chloride (98-107) mmol/L Carbon Dioxide (22-30) mmol/L Anion Gap mmol/L BUN (9-20) mg/dL Creatinine (0.66-1.25) mg/dL Est GFR (CKD-EPI)AfAm (>60 ml/min/1.73 sqM) Est GFR (CKD-EPI)NonAf (>60 ml/min/1.73 sqM) Glucose (74-99) mg/dL Calcium (8.4-10.2) mg/dL Phosphorus (2.5-4.5) mg/dL Magnesium (1.6-2.3) mg/dL Total Bilirubin (0.2-1.3) mg/dL AST (17-59) U/L ALT (4-49) U/L Alkaline Phosphatase (38-126) U/L Troponin I (0.000-0.034) ng/mL NT-Pro-B Natriuret Pep pg/mL Total Protein (6.3-8.2) g/dL Albumin (3.5-5.0) g/dL Influenza Type A (PCR) Not Detected (Not Detectd) Influenza Type B (PCR) Not Detected (Not Detectd) RSV (PCR) Not Detected (Not Detectd) SARS-CoV-2 (PCR) Not Detected (Not Detectd) 09/30/22 09/30/22 09/30/22 Range/Units 03:40 03:40 03:40 WBC (3.8-10.6) k/uL RBC (4.30-5.90) m/uL Hgb (13.0-17.5) gm/dL Hct (39.0-53.0) % MCV (80.0-100.0) fL MCH (25.0-35.0) pg MCHC (31.0-37.0) g/dL RDW (11.5-15.5) % Plt Count (150-450) k/uL MPV Neutrophils % % Lymphocytes % % Monocytes % % Eosinophils % % Basophils % % Neutrophils # (1.3-7.7) k/uL Lymphocytes # (1.0-4.8) k/uL Monocytes # (0-1.0) k/uL Eosinophils # (0-0.7) k/uL Basophils # (0-0.2) k/uL PT (9.0-12.0) sec INR (<1.2) APTT (22.0-30.0) sec D-Dimer (<0.60) mg/L FEU Sodium 141 (137-145) mmol/L Potassium 4.5 (3.5-5.1) mmol/L Chloride 107 (98-107) mmol/L Carbon Dioxide 26 (22-30) mmol/L Anion Gap 8 mmol/L BUN 13 (9-20) mg/dL Creatinine 0.79 (0.66-1.25) mg/dL Est GFR (CKD-EPI)AfAm >90 (>60 ml/min/1.73 sqM) Est GFR (CKD-EPI)NonAf >90 (>60 ml/min/1.73 sqM) Glucose 115 H (74-99) mg/dL Calcium 9.1 (8.4-10.2) mg/dL Phosphorus 3.0 (2.5-4.5) mg/dL Magnesium 2.0 (1.6-2.3) mg/dL Total Bilirubin 0.7 (0.2-1.3) mg/dL AST 27 (17-59) U/L ALT 32 (4-49) U/L Alkaline Phosphatase 63 (38-126) U/L Troponin I <0.012 (0.000-0.034) ng/mL NT-Pro-B Natriuret Pep 17 pg/mL Total Protein 7.3 (6.3-8.2) g/dL Albumin 4.3 (3.5-5.0) g/dL Influenza Type A (PCR) (Not Detectd) Influenza Type B (PCR) (Not Detectd) RSV (PCR) (Not Detectd) SARS-CoV-2 (PCR) (Not Detectd) Disposition Clinical Impression: Community acquired pneumonia, Acute bronchitis, Asthma exacerbation, Allergic reaction Disposition: HOME SELF-CARE Condition: Good Instructions (If sedation given, give patient instructions): Asthma (ED), Acute Bronchitis (ED) Prescriptions: Famotidine [Pepcid] 20 mg PO DAILY 7 Days #7 tablet predniSONE 50 mg PO DAILY #5 tab Albuterol Nebulized [Ventolin Nebulized] 2.5 mg INHALATION Q4H PRN #25 each PRN Reason: Shortness Of Breath Azithromycin [Zithromax] 500 mg PO DAILY 5 Days #5 tab Is patient prescribed a controlled substance at d/c from ED?: No Referrals: Juliet Jacobs MD [Primary Care Provider] - 1-2 days Time of Disposition: 08:30
== END 2022-09-30 09:02 | disposition home or self-care (01) ==
LOC: EC 01:50
DX: J18.9 Pneumonia, unspecified organism (principal); J20.9 Acute bronchitis, unspecified; J45.901 Unspecified asthma with (acute) exacerbation; J45.909 Unspecified asthma, uncomplicated; Z20.822 Contact with and (suspected) exposure to COVID-19; Z90.89 Acquired absence of other organs
CPT/HCPCS: 36415; 94640 ×2; 93005; 85379; 83880; 80053; 83735; 84100; 84484; 85025; 85610; 85730; 87636; 71045; 71275; 99285; 96374; 96375; 96361; J1200; J1100; J0696; Q9967

== ENCOUNTER 2023-10-20 21:16 | Observation (INO) | payer OTHER ==
--- NOTE | 2023-10-20 21:54 | XR ---
EXAMINATION TYPE: XR chest 2V DATE OF EXAM: 10/20/2023 9:34 PM CLINICAL INDICATION:Male, 28 years old with history of r/o pna; COMPARISON: Chest radiographs from 09/22/2022 TECHNIQUE: XR chest 2V Frontal and lateral views of the chest. FINDINGS: Lungs/Pleura: There is no evidence of pleural effusion, focal consolidation, or pneumothorax. Pulmonary vascularity: Unremarkable. Heart/mediastinum: Cardiomediastinal silhouette is unremarkable. Musculoskeletal: No acute osseous pathology. Other findings: None IMPRESSION: No acute cardiopulmonary disease/process.
[2023-10-20] MEDS: IPRATROPIUM-ALBUTEROL 3 ML NEB INHALATION STA (22:30)
[2023-10-20] MEDS: ACETAMINOPHEN TAB 500 MG TAB PO STA (22:43)
[2023-10-20 23:10] LABS: Prothrombin Time 10.6 sec (10.0-12.5)
[2023-10-20 23:16] LABS: ALT 31 U/L (4-49); AST 38 U/L (17-59); African American GFR (CKD) >90 (>60 ml/min/1.73 sqM); Albumin 4.5 g/dL (3.5-5.0); Alkaline Phosphatase 74 U/L (38-126); Anion Gap 10 mmol/L; Blood Urea Nitrogen 14 mg/dL (9-20); Calcium 9.3 mg/dL (8.4-10.2); Carbon Dioxide 25 mmol/L (22-30); Chloride 102 mmol/L (98-107); Glucose 110 mg/dL (74-99); Non-African American GFR(CKD) >90 (>60 ml/min/1.73 sqM); Potassium 4.8 mmol/L (3.5-5.1); Sodium 137 mmol/L (137-145); Total Bilirubin 0.8 mg/dL (0.2-1.3); Total Protein 7.9 g/dL (6.3-8.2)
[2023-10-20 23:23] LABS: Basophils % (A) 0 %; Eosinophils # (A) 0.1 k/uL (0-0.7); Eosinophils % (A) 1 %; HCT 45.2 % (39.0-53.0); HGB 15.2 gm/dL (13.0-17.5); Lymphocytes # (A) 1.1 k/uL (1.0-4.8); Lymphocytes % (A) 13 %; MCHC 33.7 g/dL (31.0-37.0); Monocytes # (A) 0.5 k/uL (0-1.0); Monocytes % (A) 6 %; Neutrophils # (A) 6.6 k/uL (1.3-7.7); Neutrophils % (A) 77 %; Platelet Count 236 k/uL (150-450); RBC 5.26 m/uL (4.30-5.90); RDW 12.6 % (11.5-15.5); WBC 8.5 k/uL (3.8-10.6)
--- NOTE | 2023-10-21 00:01 | ED ---
General Adult HPI - General Chief complaint: Shortness of Breath Stated complaint: chest pain fever SOB Time Seen by Provider: 10/20/23 21:23 Source: patient Mode of arrival: ambulatory Limitations: no limitations - History of Present Illness Initial comments: 28-year-old male with a past medical history significant for asthma presenting to the ED with a chief complaint of shortness of breath. Patient does note that he does go on long drives recently drove to [place] on Sunday and returned 3 days ago. Upon returning notes that he started to feel generally fatigued and short of breath. Reports that this has worsened since onset and also notes some cough as well now. States he has been using his breathing treatments at home with no relief of symptoms. Patient denies fever however noted chills and in triage patient was found to be febrile. No chest pain. No other complaints at this time. - Related Data Home Medications Medication Instructions Recorded Confirmed Albuterol Sulfate [Albuterol 2 puff INHALATION RT-QID PRN 03/25/22 03/25/22 Sulfate Hfa] Ipratropium-Albuterol Nebulize 3 ml INHALATION RT-QID PRN 03/25/22 03/25/22 [Duoneb 0.5 mg-3 mg/3 ml Soln] Previous Rx's Medication Instructions Recorded HYDROcodone/APAP 5-325MG [[place] 1 tab PO Q6HR PRN 3 Days #14 tab 03/27/22 5-325] Albuterol Nebulized [Ventolin 2.5 mg INHALATION Q4H PRN #25 each 09/30/22 Nebulized] Azithromycin [Zithromax] 500 mg PO DAILY 5 Days #5 tab 09/30/22 Famotidine [Pepcid] 20 mg PO DAILY 7 Days #7 tablet 09/30/22 predniSONE 50 mg PO DAILY #5 tab 09/30/22 Allergies Allergy/AdvReac Type Severity Reaction Status Date / Time Cephalosporins Allergy Rash/Hives Verified 09/30/22 15:05 ceftriaxone [From Rocephin] AdvReac Rash/Hives Verified 10/20/23 21:31 Review of Systems ROS Statement: Those systems with pertinent positive or pertinent negative responses have been documented in the HPI. ROS Other: All systems not noted in ROS Statement are negative. Past Medical History Past Medical History: No Reported History, Asthma History of Any Multi-Drug Resistant Organisms: None Reported Past Surgical History: Orthopedic Surgery Additional Past Surgical History / Comment(s): right hip right hand Smoking Status: Never smoker Past Alcohol Use History: Occasional Past Drug Use History: None Reported General Exam Limitations: no limitations General appearance: alert, in no apparent distress Eye exam: Present: normal appearance Respiratory exam: Present: wheezes (Wheezing in bilateral lung dyer. Tachypnea. No accessory muscle use at this time.) Cardiovascular Exam: Present: tachycardia GI/Abdominal exam: Present: soft Neurological exam: Present: alert, oriented X3 Skin exam: Present: warm, dry Course Vital Signs 10/20/23 10/20/23 10/20/23 21:18 21:45 22:30 Temperature 100.3 F H Pulse Rate 134 H 120 H 116 H Respiratory 20 18 Rate Blood Pressure 128/91 136/85 O2 Sat by Pulse 92 L 94 L Oximetry 10/20/23 10/20/23 22:38 22:44 Temperature Pulse Rate 110 H 123 H Respiratory 20 Rate Blood Pressure 126/76 O2 Sat by Pulse 96 Oximetry Medical Decision Making - Medical Decision Making Was pt. sent in by a medical professional or institution (, PA, MAINTENANCE PORTER, urgent care, hospital, or fpc...) When possible be specific @ -No Did you speak to anyone other than the patient for history (EMS, parent, family, police, friend...)? What history was obtained from this source @ -No Did you review nursing and triage notes (agree or disagree)? Why? @ -I reviewed and agree with nursing and triage notes Were old charts reviewed (outside hosp., previous admission, EMS record, old EKG, old radiological studies, urgent care reports/EKG's, fpc records)? Report findings @ -No old charts were reviewed Differential Diagnosis (chest pain, altered mental status, abdominal pain women, abdominal pain men, vaginal bleeding, weakness, fever, dyspnea, syncope, headache, dizziness, GI bleed, back pain, seizure, CVA, palpatations, mental health, musculoskeletal)? @ -Differential Dyspnea: Coronary syndrome, arrhythmia, tamponade, asthma, COPD, pulmonary embolism, pneumonia, pneumothorax, pulmonary effusion, anaphylaxis, diabetic ketoacidosis, flailed chest, pulmonary contusion, diaphragmatic rupture, anemia, neuromuscular, this is not meant to be an all-inclusive list. EKG interpreted by me (3pts min.). @ -EKG shows a sinus tachycardia [address] and T wave changes. Does appear to have some evidence of incomplete right bundle branch block. OH 122, QRS 102, QT/QTc 289/359. X-rays interpreted by me (1pt min.). @ -Chest x-ray inter by me showing no evidence of acute process. CT interpreted by me (1pt min.). @ -None done U/S interpreted by me (1pt. min.). @ -None done What testing was considered but not performed or refused? (CT, X-rays, U/S, labs)? Why? @ -None What meds were considered but not given or refused? Why? @ -None Did you discuss the management of the patient with other professionals (professionals i.e. , PA, MAINTENANCE P[employer]TER, lab, RT, psych nurse, adoption social worker, standards analyst, teacher, training officer, case folder)? Give summary @ -Discussed with Dr. Hancock of [facility] who accepts admission with consult to pulmonology. Was smoking cessation discussed for >3mins.? @ -No Was critical care preformed (if so, how long)? @ -No Were there social determinants of health that impacted care today? How? (Homelessness, low income, unemployed, alcoholism, drug addiction, transportation, low edu. Level, literacy, decrease access to med. care, correction, rehab)? @ -No Was there de-escalation of care discussed even if they declined (Discuss DNR or withdrawal of care, Hospice)? DNR status @ -No What co-morbidities impacted this encounter? (DM, HTN, Smoking, COPD, CAD, Cancer, CVA, ARF, Chemo, Hep., AIDS, mental health diagnosis, sleep apnea, mo rbid obesity)? @ -Asthma Was patient admitted / discharged? Hospital course, mention meds given and route, prescriptions, significant lab abnormalities, going to OR and other pertinent info. @ -Admission 28-year-old male with a past medical history significant for asthma presenting to the ED with complaints of dyspnea generalized fatigue and onset of cough as well. Laboratory studies reviewed. CBC unremarkable. Coagulation panel including D-dimer unremarkable. Chemistry panel largely unremarkable. Troponin less than 0.012. Serology panel shows patient positive for influenza A. Chest x-ray reveals no acute findings. Despite breathing treatment here in the ED patient still remains dyspneic and saturating at 95% on 2 L of oxygen. Patient provided 125 mg of Solu-Medrol here in the ED. Secondary to this, patient will be admitted to observation with consult to pulmonology. Undiagnosed new problem with uncertain prognosis? @ -No Drug Therapy requiring intensive monitoring for toxicity (Heparin, Nitro, Insulin, Cardizem)? @ -No Were any procedures done? @ -No Diagnosis/symptom? @ -Asthma exacerbation, influenza A Acute, or Chronic, or Acute on Chronic? @ -Acute Uncomplicated (without systemic symptoms) or Complicated (systemic symptoms)? @ -Complicated Side effects of treatment? @ -No Exacerbation, Progression, or Severe Exacerbation? @ -Asthma exacerbation Poses a threat to life or bodily function? How? (Chest pain, [place], [place], pneumonia, PE, COPD, DKA, ARF, appy, cholecystitis, CVA, Diverticulitis, Homicidal, Suici cory, threat to staff... and all critical care pts) @ -Possibly however unlikely - Lab Data Result diagrams: 10/20/23 22:10 10/20/23 22:10 Lab Results 10/20/23 10/20/23 10/20/23 Range/Units 21:31 22:10 22:10 WBC 8.5 (3.8-10.6) k/uL RBC 5.26 (4.30-5.90) m/uL Hgb 15.2 (13.0-17.5) gm/dL Hct 45.2 (39.0-53.0) % MCV 86.0 (80.0-100.0) fL MCH 29.0 (25.0-35.0) pg MCHC 33.7 (31.0-37.0) g/dL RDW 12.6 (11.5-15.5) % Plt Count 236 (150-450) k/uL MPV 8.0 Neutrophils % 77 % Lymphocytes % 13 % Monocytes % 6 % Eosinophils % 1 % Basophils % 0 % Neutrophils # 6.6 (1.3-7.7) k/uL Lymphocytes # 1.1 (1.0-4.8) k/uL Monocytes # 0.5 (0-1.0) k/uL Eosinophils # 0.1 (0-0.7) k/uL Basophils # 0.0 (0-0.2) k/uL PT 10.6 (10.0-12.5) sec INR 1.0 (<1.2) APTT 31.0 H (22.0-30.0) sec D-Dimer 0.31 (<0.60) mg/L FEU Sodium (137-145) mmol/L Potassium (3.5-5.1) mmol/L Chloride (98-107) mmol/L Carbon Dioxide (22-30) mmol/L Anion Gap mmol/L BUN (9-20) mg/dL Creatinine (0.66-1.25) mg/dL Est GFR (CKD-EPI)AfAm (>60 ml/min/1.73 sqM) Est GFR (CKD-EPI)NonAf (>60 ml/min/1.73 sqM) Glucose (74-99) mg/dL Plasma Lactic Acid Beny (0.7-2.0) mmol/L Calcium (8.4-10.2) mg/dL Total Bilirubin (0.2-1.3) mg/dL AST (17-59) U/L ALT (4-49) U/L Alkaline Phosphatase (38-126) U/L Troponin I (0.000-0.034) ng/mL Total Protein (6.3-8.2) g/dL Albumin (3.5-5.0) g/dL Influenza Type A (PCR) Detected A (Not Detectd) Influenza Type B (PCR) Not Detected (Not Detectd) RSV (PCR) Not Detected (Not Detectd) SARS-CoV-2 (PCR) Not Detected (Not Detectd) 10/20/23 10/20/23 10/20/23 Range/Units 22:10 22:10 22:10 WBC (3.8-10.6) k/uL RBC (4.30-5.90) m/uL Hgb (13.0-17.5) gm/dL Hct (39.0-53.0) % MCV (80.0-100.0) fL MCH (25.0-35.0) pg MCHC (31.0-37.0) g/dL RDW (11.5-15.5) % Plt Count (150-450) k/uL MPV Neutrophils % % Lymphocytes % % Monocytes % % Eosinophils % % Basophils % % Neutrophils # (1.3-7.7) k/uL Lymphocytes # (1.0-4.8) k/uL Monocytes # (0-1.0) k/uL Eosinophils # (0-0.7) k/uL Basophils # (0-0.2) k/uL PT (10.0-12.5) sec INR (<1.2) APTT (22.0-30.0) sec D-Dimer (<0.60) mg/L FEU Sodium 137 (137-145) mmol/L Potassium 4.8 (3.5-5.1) mmol/L Chloride 102 (98-107) mmol/L Carbon Dioxide 25 (22-30) mmol/L Anion Gap 10 mmol/L BUN 14 (9-20) mg/dL Creatinine 1.10 (0.66-1.25) mg/dL Est GFR (CKD-EPI)AfAm >90 (>60 ml/min/1.73 sqM) Est GFR (CKD-EPI)NonAf >90 (>60 ml/min/1.73 sqM) Glucose 110 H (74-99) mg/dL Plasma Lactic Acid Beny 1.1 (0.7-2.0) mmol/L Calcium 9.3 (8.4-10.2) mg/dL Total Bilirubin 0.8 (0.2-1.3) mg/dL AST 38 (17-59) U/L ALT 31 (4-49) U/L Alkaline Phosphatase 74 (38-126) U/L Troponin I <0.012 (0.000-0.034) ng/mL Total Protein 7.9 (6.3-8.2) g/dL Albumin 4.5 (3.5-5.0) g/dL Influenza Type A (PCR) (Not Detectd) Influenza Type B (PCR) (Not Detectd) RSV (PCR) (Not Detectd) SARS-CoV-2 (PCR) (Not Detectd) Disposition Clinical Impression: Asthma exacerbation, Influenza A Disposition: ADMITTED IP TO THIS [facility] Condition: Fair Referrals: Juliet Jacobs MD [Primary Care Provider] - 1-2 days Time of Disposition: 23:45
[2023-10-21] MEDS ORDERED: NALOXONE 0.4 MG/ML 1 ML VIAL IVP PRN (00:36)
[2023-10-21] MEDS ORDERED: IBUPROFEN 400 MG TAB PO PRN (00:39)
[2023-10-21] MEDS ORDERED: ACETAMINOPHEN TAB 325 MG TAB PO PRN (00:39)
[2023-10-21] MEDS: methylPREDNISolone SOD SUCCI 125 MG/2 ML VIAL IV STA (01:57)
[2023-10-21] MEDS: SODIUM CHLORIDE 0.9% 1,000 ML IV STA (02:42)
[2023-10-21] MEDS: IPRATROPIUM-ALBUTEROL 3 ML NEB INHALATION PRN (08:32)
--- NOTE | 2023-10-21 11:50 | P.HPIM ---
History of Present Illness 28-year-old male came with complaints of shortness of breath has been going on for 3 days does have history of asthma. Patient is found to have influenza A significant wheezing on exam chest x-ray did not show any pneumonia was comp laining of cough with brown sputum production. Patient is not a smoker REVIEW OF SYSTEMS: CONSTITUTIONAL: No fever, no malaise, no fatigue. HEENT: No recent visual problems or hearing problems. Denied any sore throat. CARDIOVASCULAR: No chest pain, orthopnea, PND, no palpitations, no syncope. PULMONARY no hemoptysis. GASTROINTESTINAL: No diarrhea, no nausea, no vomiting, no abdominal pain. NEUROLOGICAL: No headaches, no weakness, no numbness. HEMATOLOGICAL: Denies any bleeding or petechiae. GENITOURINARY: Denies any burning micturition, frequency, or urgency. MUSCULOSKELETAL/RHEUMATOLOGICAL: Denies any joint pain, swelling, or any muscle pain. ENDOCRINE: Denies any polyuria or polydipsia. The rest of the 14-point review of systems is negative. PHYSICAL EXAMINATION: GENERAL: The patient is alert and oriented x3, not in any acute distress. Well developed, well nourished. HEENT: Pupils are round and equally reacting to light. EOMI. No scleral icterus. No conjunctival pallor. Normocephalic, atraumatic. No pharyngeal erythema. No thyromegaly. CARDIOVASCULAR: S1 and S2 present. No murmurs, rubs, or gallops. PULMONARY: Expiratory wheezing on exam no rhonchi or crackles ABDOMEN: Soft, nontender, nondistended, normoactive bowel sounds. No palpable organomegaly. MUSCULOSKELETAL: No joint swelling or deformity. EXTREMITIES: No cyanosis, clubbing, or pedal edema. NEUROLOGICAL: Gross neurological examination did not reveal any focal deficits. SKIN: No rashes. Assessment and plan -Acute asthma exacerbation: Patient was started on steroids along with GI prophy laxis with Protonix. This patient is secondary to influenza A infection -Influenza A infection DVT prophylaxis: Ambulation Past Medical History Past Medical History: No Reported History, Asthma History of Any Multi-Drug Resistant Organisms: None Reported Past Surgical History: Orthopedic Surgery Additional Past Surgical History / Comment(s): right hip right hand Smoking Status: Never smoker Past Alcohol Use History: Occasional Past Drug Use History: None Reported Medications and Allergies Home Medications Medication Instructions Recorded Confirmed Type Albuterol Sulfate [Albuterol 2 puff INHALATION RT-QID PRN 03/25/22 03/25/22 History Sulfate Hfa] Ipratropium-Albuterol Nebulize 3 ml INHALATION RT-QID PRN 03/25/22 03/25/22 History [Duoneb 0.5 mg-3 mg/3 ml Soln] Albuterol Nebulized [Ventolin 2.5 mg INHALATION Q4H PRN #25 each 09/30/22 Rx Nebulized] Allergies Allergy/AdvReac Type Severity Reaction Status Date / Time Cephalosporins Allergy Rash/Hives Verified 10/21/23 11:35 ceftriaxone [From Rocephin] AdvReac Rash/Hives Verified 10/21/23 11:35 Physical Exam Vitals: Vital Signs Temp Pulse Pulse Resp BP BP Pulse Ox 10/21/23 08:42 112 H 10/21/23 08:32 104 H 10/21/23 08:00 97 16 10/21/23 07:00 98.0 F 97 16 132/89 95 10/21/23 02:23 98.4 F 88 18 133/85 94 L 10/21/23 01:02 97.9 F 96 18 130/87 95 10/20/23 22:44 123 H 20 126/76 96 10/20/23 22:38 110 H 10/20/23 22:30 116 H 10/20/23 21:45 120 H 18 136/85 94 L 10/20/23 21:18 100.3 F H 134 H 20 128/91 92 L Intake and Output 10/20/23 10/21/23 10/21/23 22:59 06:59 14:59 Intake Total 118 Balance 118 Intake: Oral 118 Other: Voiding Method Toilet # Voids 2 Weight 108.862 kg 108.862 kg Results CBC & Chem 7: 10/20/23 22:10 10/20/23 22:10 Labs: Abnormal Lab Results - Last 24 Hours (Table) 10/20/23 10/20/23 10/20/23 Range/Units 21:31 22:10 22:10 APTT 31.0 H (22.0-30.0) sec Glucose 110 H (74-99) mg/dL Influenza Type A (PCR) Detected A (Not Detectd)
[2023-10-21] MEDS: IPRATROPIUM-ALBUTEROL 3 ML NEB INHALATION SCH (12:27)
[2023-10-21] MEDS: methylPREDNISolone SOD SUCCI 40 MG/ML 1 ML VIAL IV SCH (12:30)
[2023-10-21] MEDS: AZITHROMYCIN 500 MG TAB PO SCH (12:31)
[2023-10-21] MEDS: PANTOPRAZOLE 40 MG TABLET PO SCH (12:31)
[2023-10-21 20:04] VITALS: RESP 18
[2023-10-22 06:59] VITALS: BP 129/78; TEMP 97.8
[2023-10-22 11:15] VITALS: PULSE 84
== END 2023-10-22 14:51 | disposition home or self-care (01) ==
LOC: EC 21:16 → 6NMEDSUR 23:52
PROVIDERS: ADMIT Internal Medicine; ATTEND Internal Medicine
DX: J45.901 Unspecified asthma with (acute) exacerbation (principal); J10.1 Influenza due to other identified influenza virus with other respiratory manifestations; J45.909 Unspecified asthma, uncomplicated; Z79.899 Other long term (current) drug therapy; Z79.52 Long term (current) use of systemic steroids; Z88.1 Allergy status to other antibiotic agents
CPT/HCPCS: 96376 ×2; 96361; 96374; 99285; 36415; 94640 ×5; 93005; 85379; 80053; 83605; 84484; 85025; 85610; 85730; 87636; 71046; G0378 ×3; J2920 ×2